=== PATIENT | female | born 1975 | race Two or more races ===

== ENCOUNTER 2016-09-12 07:43 | Emergency (ER) | payer MEDICAID, OTHER ==
[~2016-09-12] VITALS: Ht 165.1 cm; Wt 72.6 kg
[2016-09-12 07:49] VITALS: BP 148/73
== END 2016-09-12 10:44 | disposition home or self-care (01) ==
LOC: ER 07:47
DX: S86.811A Strain of other muscle(s) and tendon(s) at lower leg level, right leg, initial encounter (principal); X58.XXXA Exposure to other specified factors, initial encounter; Y93.89 Activity, other specified; Y99.8 Other external cause status; Y92.830 Public park as the place of occurrence of the external cause
CPT/HCPCS: 93971